=== PATIENT | female | born 1975 | race Hispanic/Latino ===

== ENCOUNTER 2021-04-14 11:16 | Inpatient (IN) | payer OTHER ==
[~2021-04-14] VITALS: Ht 165.1 cm; Wt 87.9 kg
[2021-04-14] VITALS (13 sets, daily range): BP systolic 84–139; BP diastolic 38–71
[~2021-04-14 11:16] MED LIST: ALBU8.5H8 IH; FERR-82 PO; FERSL GT
[2021-04-14 12:22] LABS: BASOPHILS % (AUTO) 0.3 % (0.0-5.0); EOSINOPHILS % (AUTO) 0.3 % (0.0-8.0); HEMATOCRIT 24.7 % (36-48); LYMPHOCYTES % (AUTO) 25.7 % (21.0-51.0); MEAN CORPUSCULAR HEMOGLOBIN 16.2 pg (27.0-33.0); MEAN CORPUSCULAR HGB CONC 26.3 g/dL (32.0-36.0); MEAN CORPUSCULAR VOLUME 61.4 fL (79-99); MONOCYTES % (AUTO) 6.9 % (3.0-13.0); NEUTROPHILS % (AUTO) 66.5 % (40.0-77.0); PLATELET COUNT (AUTO) 455 K/uL (130-400); RED BLOOD CELL COUNT(AUTO) 4.02 MIL/uL (4.00-5.50); RED CELL DISTRIBUTION WIDTH 22.4 % (11.0-15.5); WHITE BLOOD COUNT (AUTO) 11.8 K/uL (4.8-10.8)
[2021-04-14 12:34] LABS: CARBON DIOXIDE 27 mmol/L (21-32); CHLORIDE 105 mmol/L (101-111); CREATININE 0.6 mg/dL (0.5-1.5); GLOMERULAR FILTR. RATE CALC 116 mL/min (>60); GLUCOSE,RANDOM 94 mg/dL (70-105); POTASSIUM 3.9 mmol/L (3.5-5.1); SODIUM SERUM 141 mmol/L (136-145); UREA NITROGEN, BLOOD 8 mg/dL (7-18)
[2021-04-14 12:47] LABS: ALANINE AMINOTRANSFERASE 24 U/L (12-78); ALBUMIN 3.6 g/dL (3.5-5.0); ASPARTATE AMINOTRANSFERASE 16 U/L (10-37); BILIRUBIN,TOTAL 0.5 mg/dL (0.2-1.0); CREATINE KINASE, TOTAL 24 U/L (21-232); MYOGLOBIN 11 ng/mL (10-92); TOTAL PROTEIN, SERUM 7.3 g/dL (6.0-8.3); TROPONIN I < 0.04 ng/mL (0.00-0.06)
[2021-04-14] MEDS ORDERED: 0.9%NACL 1000ML 1,000 ML IV SCH (14:30)
[2021-04-14 15:39] LABS: RETICULOCYTE % (AUTO) 1.46 % (0.42-2.23)
[2021-04-14 15:48] LABS: % IRON SATURATION 2.4 % (22-44)
[2021-04-14 16:21] LABS: THYROID STIMULATING HORMONE 2.16 uIU/mL (0.36-3.74)
[2021-04-14] MEDS ORDERED: ONDANSETRON 4MG INJ IV PRN (17:30)
[2021-04-14] MEDS ORDERED: FOLIC ACID 5 MG/ML VIAL IM ONE (17:30)
[2021-04-14] MEDS ORDERED: ACETAMINOPHEN 325 MG TAB PO PRN ×2 (17:30)
[2021-04-14] MEDS: CYANOCOBALAMIN (VITAMIN B-12) 1000 MCG/ML 1ML VIAL IM SCH (18:08)
[2021-04-14 19:40] LABS: HEMATOCRIT 26.1 % (36-48)
[2021-04-14] MEDS: FAMOTIDINE 20MG TAB PO SCH (21:00)
[2021-04-15 00:17] VITALS: BP 112/52
[2021-04-15 04:00] VITALS: BP 108/37
[2021-04-15 08:00] VITALS: BP 102/35
[2021-04-15] MEDS ORDERED: IRON SUCROSE COMPLEX 300 MG in 0.9% NACL 250ML 250 ML IV SCH (09:00)
[2021-04-15] MEDS: FAMOTIDINE 20MG TAB PO SCH ×2 (09:40→20:22)
[2021-04-15] MEDS: CYANOCOBALAMIN (VITAMIN B-12) 1000 MCG/ML 1ML VIAL IM SCH (09:41)
[2021-04-15 12:00] VITALS: BP 81/31
[2021-04-15 16:00] VITALS: BP 109/38
[2021-04-15] MEDS ORDERED: 0.9% NACL 250ML 250 ML ONE (18:44)
[2021-04-15 19:45] VITALS: BP 110/37
[2021-04-16 00:05] VITALS: BP 103/32
[2021-04-16 04:05] VITALS: BP 110/43
[2021-04-16 07:59] LABS: HEMATOCRIT 29.4 % (36-48)
[2021-04-16 09:14] VITALS: BP 115/52
[2021-04-16] MEDS: FAMOTIDINE 20MG TAB PO SCH (09:27)
[2021-04-16] MEDS: CYANOCOBALAMIN (VITAMIN B-12) 1000 MCG/ML 1ML VIAL IM SCH (09:27)
== END 2021-04-16 11:03 | disposition home or self-care (01) | DRG 812 ==
LOC: EDH 11:16 → EDHIP 11:17 → OBSVTOIN 11:17 → 3DH 21:20
PROVIDERS: ADMIT Internal Medicine; ATTEND Internal Medicine
PROC: 30233N1 Transfusion of Nonautologous Red Blood Cells into Peripheral Vein, Percutaneous Approach (ICD-10-PCS; principal; 2021-04-14)
DX: D62 Acute posthemorrhagic anemia (principal); K90.9 Intestinal malabsorption, unspecified; D50.9 Iron deficiency anemia, unspecified; J45.909 Unspecified asthma, uncomplicated; G43.909 Migraine, unspecified, not intractable, without status migrainosus; M19.90 Unspecified osteoarthritis, unspecified site; I10 Essential (primary) hypertension; E53.8 Deficiency of other specified B group vitamins; E66.9 Obesity, unspecified; Z68.31 Body mass index [BMI] 31.0-31.9, adult; Z86.16 Personal history of COVID-19; Z98.84 Bariatric surgery status; Z88.8 Allergy status to other drugs, medicaments and biological substances; Z83.3 Family history of diabetes mellitus; Z82.49 Family history of ischemic heart disease and other diseases of the circulatory system
CPT/HCPCS: 36415; 36430; 76856; 80053; 82270; 82550; 82607; 82746; 82948; 83090; 83540; 83550; 83874; 84443; 84484; 85014; 85018; 85025; 85045; 86850; 86900; 86901; 86923; 93005; G0378; J1756; J3420; J7050; P9016

== ENCOUNTER 2022-12-03 17:12 | Emergency (ER) | payer OTHER ==
[~2022-12-03] VITALS: Ht 162.6 cm; Wt 97.1 kg
[~2022-12-03 17:12] MED LIST changes: -FERSL GT
[2022-12-03 17:55] LABS: HEMATOCRIT 27.6 % (36-48); MEAN CORPUSCULAR HEMOGLOBIN 16.1 pg (27.0-33.0); MEAN CORPUSCULAR HGB CONC 26.4 g/dL (32.0-36.0); MEAN CORPUSCULAR VOLUME 60.9 fL (79-99); PLATELET COUNT (AUTO) 424 K/uL (130-400); RED BLOOD CELL COUNT(AUTO) 4.53 MIL/uL (4.00-5.50); RED CELL DISTRIBUTION WIDTH 22.5 % (11.0-15.5); WHITE BLOOD COUNT (AUTO) 8.1 K/uL (4.8-10.8)
[2022-12-03 18:12] LABS: CREATININE 0.7 mg/dL (0.5-1.5); POTASSIUM 3.4 mmol/L (3.5-5.1)
[2022-12-03 18:16] LABS: ALBUMIN 3.8 g/dL (3.5-5.0); TOTAL PROTEIN, SERUM 7.4 g/dL (6.0-8.3)
[2022-12-03 18:24] LABS: PLATELET MORPHOLOGY LARGE PLTS PRESENT
[2022-12-03] MEDS ORDERED: KETOROLAC 15MG/ML VIAL (15MG/ML) IV ONE (18:30)
[2022-12-03] MEDS ORDERED: 0.9%NACL 1000ML 1,000 ML IV ONE (18:30)
[2022-12-03] MEDS ORDERED: ACETAMINOPHEN 500 MG TABLET PO ONE (23:00)
[2022-12-03 23:32] VITALS: BP 123/56
== END 2022-12-04 00:12 | disposition home or self-care (01) ==
LOC: EDH 17:12
DX: N93.9 Abnormal uterine and vaginal bleeding, unspecified (principal); D64.9 Anemia, unspecified; D25.9 Leiomyoma of uterus, unspecified; R10.2 Pelvic and perineal pain; Z90.49 Acquired absence of other specified parts of digestive tract; Z90.89 Acquired absence of other organs; Z79.899 Other long term (current) drug therapy; Z88.8 Allergy status to other drugs, medicaments and biological substances
CPT/HCPCS: 99285; 36430; 96374; 76856; 96361; 80053; 84703; 84702; 85027; 86850; 86900; 86901; 86923; 36415; P9016; J7030; J1885

== ENCOUNTER 2023-11-08 16:55 | Emergency (ER) | payer OTHER ==
[~2023-11-08] VITALS: Ht 165.1 cm; Wt 92.1 kg
[2023-11-08 17:45] LABS: BASOPHILS # (AUTO) 0.05 K/uL (0.00-0.20); BASOPHILS % (AUTO) 0.7 % (0.0-5.0); EOSINOPHILS # (AUTO) 0.07 K/uL (0.00-0.70); HEMATOCRIT 23.4 % (36-48); IMMATURE GRANULOCYTE ABSOLUTE 0.02 K/uL (0-1); LYMPHOCYTES # (AUTO) 1.9 K/uL (1.0-4.8); LYMPHOCYTES % (AUTO) 26.5 % (21.0-51.0); MEAN CORPUSCULAR HEMOGLOBIN 14.9 pg (27.0-33.0); MEAN CORPUSCULAR HGB CONC 26.1 g/dL (32.0-36.0); MEAN CORPUSCULAR VOLUME 57.1 fL (79-99); MONOCYTES # (AUTO) 0.6 K/uL (0.1-1.0); MONOCYTES % (AUTO) 8.5 % (3.0-13.0); NEUTROPHILS # (AUTO) 4.5 K/uL (1.8-7.7); NUCLEATED RED BLOOD CELLS 0.4 % (0.0-0.19); PLATELET COUNT (AUTO) 367 K/uL (130-400); RED CELL DISTRIBUTION WIDTH 21.9 % (11.0-15.5); WHITE BLOOD COUNT (AUTO) 7.2 K/uL (4.8-10.8)
[2023-11-08 18:04] LABS: CREATININE 0.7 mg/dL (0.5-1.5); POTASSIUM 3.8 mmol/L (3.5-5.1)
[2023-11-08 18:05] LABS: ALBUMIN 3.7 g/dL (3.5-5.0); BILIRUBIN,TOTAL 0.4 mg/dL (0.2-1.0); TOTAL PROTEIN, SERUM 7.5 g/dL (6.0-8.3)
[2023-11-08] MEDS: METOCLOPRAMIDE 10 MG/2 ML VIAL IVP ONE (18:12)
[2023-11-08] MEDS: DEXAMETHASONE SOD PHOSPHATE 4 MG/ML 1ML VIAL IV ONE (18:12)
[2023-11-08] MEDS: MORPHINE 4 MG SYG IVP ONE (18:13)
[2023-11-08] MEDS: FAMOTIDINE 20MG VIAL IV ONE (18:13)
[2023-11-08] MEDS: ASPIRIN 325MG TAB PO ONE (18:13)
[2023-11-08 18:26] LABS: THYROID STIMULATING HORMONE 1.36 uIU/mL (0.36-3.74)
[2023-11-08] MEDS ORDERED: FERR-72 PO (18:42)
[2023-11-08] MEDS ORDERED: METO-296 PO (18:42)
[2023-11-08] MEDS ORDERED: POLY17PO4 PO (18:42)
[2023-11-09 00:49] VITALS: BP 115/61; PULSE 64; RESP 18; O2SAT 100
== END 2023-11-09 01:05 | disposition home or self-care (01) ==
LOC: EDH 16:55
DX: G43.909 Migraine, unspecified, not intractable, without status migrainosus (principal); N92.0 Excessive and frequent menstruation with regular cycle; D64.9 Anemia, unspecified; R10.2 Pelvic and perineal pain; Z98.890 Other specified postprocedural states; Z90.49 Acquired absence of other specified parts of digestive tract
CPT/HCPCS: 99285; 36430; 96374; 96375; 71045; 84443; 83735; 84484; 80053; 84702; 85025; 86850; 86900; 86901; 86923; 36415; 93005; P9016; J1100; J3490; J2270; J2765